=== PATIENT | female | born 1980 | race Caucasian/White ===

== ENCOUNTER 2021-07-24 00:01 | Emergency (ER) | payer OTHER ==
[~2021-07-24] VITALS: Ht 162.6 cm; Wt 81.6 kg
[2021-07-24 00:01] VITALS: BP 124/82
== END 2021-07-24 03:42 | disposition home or self-care (01) ==
LOC: ER 00:11
DX: S82.831A Other fracture of upper and lower end of right fibula, initial encounter for closed fracture (principal); X58.XXXA Exposure to other specified factors, initial encounter; Y93.89 Activity, other specified; Y92.89 Other specified places as the place of occurrence of the external cause; Y99.8 Other external cause status
CPT/HCPCS: 29515; 73610; 81025